=== PATIENT | female | born 1995 | race Caucasian/White ===

== ENCOUNTER → 2019-11-03 09:48 | Outpatient (BNVA) | payer BC, SELFPAY | PROVIDERS: Family Provider Family Medicine; PCP Family Medicine; Visit Provider Internal Medicine | DX: Z11.59 Encounter for screening for other viral diseases (principal) | CPT/HCPCS: 87635 ==

== ENCOUNTER → 2019-11-20 17:56 | Outpatient (BNVA) | payer BC, SELFPAY | PROVIDERS: Family Provider Family Medicine; PCP Family Medicine; Visit Provider Specialist | DX: Z20.828 Contact with and (suspected) exposure to other viral communicable diseases (principal) | CPT/HCPCS: 87635 ==

== ENCOUNTER 2019-11-22 06:12 | Outpatient (CLI) | payer BC, SELFPAY ==
--- NOTE | 2019-11-22 11:13 | PFTS_ITS ---
Date of Study:11/22/19 Date of Dictation: MECHANICS: Forced vital capacity (FVC) is normal. Forced expiratory volume in one second (FEV1) is normal. FEV1/FVC is normal. FLOW VOLUME LOOP: Normal. LUNG VOLUMES: Not measured DIFFUSING CAPACITY FOR CARBON MONOXIDE: Normal. INTERPRETATION: The spirometry is normal. The gas exchange is normal. MTDD
== END 2019-11-22 06:13 | disposition home or self-care (01) ==
LOC: RT 06:18
PROVIDERS: PCP Family Medicine; Visit Provider Specialist
DX: J30.9 Allergic rhinitis, unspecified (principal)
CPT/HCPCS: 94010; 94729

== ENCOUNTER → 2020-01-12 10:17 | Outpatient (BNVA) | payer BC, SELFPAY | PROVIDERS: PCP Family Medicine; Visit Provider Family Medicine | DX: R10.2 Pelvic and perineal pain (principal) | CPT/HCPCS: 81025 ==

== ENCOUNTER 2020-01-19 08:05 | Outpatient (CLI) | payer BC, SELFPAY ==
--- NOTE | 2020-01-19 08:45 | US_ITS ---
WS: [id number] TRANSABDOMINAL PELVIC AND TRANSVAGINAL PELVIC ULTRASOUND HISTORY: pelvic pain COMPARISON: None available. Uterus: 6.7 cm x 5.2 cm x 3.0 cm. Normal size anteverted uterus. Uterus becomes retroverted on transv aginal imaging. No fibroid or mass. Endometrium: 0.4 cm. Normal homogeneity. Right ovary: 3.2 cm x 1.9 cm x 2.9 cm. Normal size and vascularity. No mass. Left ovary: 3.0 cm x 2.7 cm x 1.9 cm. Normal size and vascularity. No mass. No free fluid. US/US pelvic with transvaginal IMPRESSION: Normal pelvic ultrasound.
== END 2020-01-19 08:06 | disposition home or self-care (01) ==
LOC: RAD 08:17
PROVIDERS: PCP Family Medicine; Visit Provider Family Medicine
DX: R10.2 Pelvic and perineal pain (principal)
CPT/HCPCS: 76830; 76856

== ENCOUNTER → 2020-10-18 11:19 | Outpatient (BNVA) | payer BC, SELFPAY | PROVIDERS: PCP Family Medicine; Visit Provider Family Medicine | DX: N92.6 Irregular menstruation, unspecified (principal) | CPT/HCPCS: 81025 ==

== ENCOUNTER 2021-03-21 10:41 | Outpatient (CLI) | payer BC, SELFPAY ==
[2021-03-21 11:52] LABS: Estmated Average Glucose 88; Hemoglobin A1C 4.7 % (4.0-6.0)
[2021-03-21 12:03] LABS: Thyroid Stimulating Hormone 1.18 uIU/mL (0.27-4.20)
[2021-03-24 15:27] LABS: Insulin ( Reference Lab Test) 5.5 uIU/mL
== END 2021-03-21 10:42 | disposition home or self-care (01) ==
PROVIDERS: PCP Family Medicine; Visit Provider Obstetrics & Gynecology
DX: N97.9 Female infertility, unspecified (principal)
CPT/HCPCS: 36415; 83036; 83525; 84443; 88175

== ENCOUNTER → 2022-11-11 10:09 | Outpatient (BNVA) | payer BC, SELFPAY | PROVIDERS: PCP Family Medicine; Referring Provider Family Medicine; Visit Provider Family Medicine | DX: Z13.1 Encounter for screening for diabetes mellitus (principal); Z13.6 Encounter for screening for cardiovascular disorders; N97.9 Female infertility, unspecified | CPT/HCPCS: 80053; 80061; 83520; 84144 ==

== ENCOUNTER 2023-04-29 18:51 | Emergency (ER) | payer BC, SELFPAY ==
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
[2023-04-29 18:58] VITALS: BP 118/79; PULSE 94; RESP 14; TEMP 36.7; O2SAT 98
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
--- NOTE | 2023-04-29 19:10 | PC.NURSE ---
Ice pack applied to hand
[2023-04-29 19:54] VITALS: PULSE 81; RESP 16; O2SAT 99
--- NOTE | 2023-04-29 20:06 | DCPLANNER ---
Message sent to Orthopedics for a follow up appointment - Patricia SCHAEFER Follow-up with orthopedist for further treatment.
== END 2023-04-29 20:00 | disposition home or self-care (01) ==
PROVIDERS: Emergency Provider Nurse Practitioner Family; PCP Family Medicine
DX: S62.326A Displaced fracture of shaft of fifth metacarpal bone, right hand, initial encounter for closed fracture (principal); W22.09XA Striking against other stationary object, initial encounter
CPT/HCPCS: 29125; 73130; 99283

== ENCOUNTER 2023-05-03 06:00 | Outpatient (CLI) | payer BC, SELFPAY | END 2023-05-03 06:01 | disposition home or self-care (01) | LOC: SPT 05-05 14:10 | PROVIDERS: Visit Provider Nurse Practitioner | DX: Z46.89 Encounter for fitting and adjustment of other specified devices (principal); S62.326D Displaced fracture of shaft of fifth metacarpal bone, right hand, subsequent encounter for fracture with routine healing; X58.XXXD Exposure to other specified factors, subsequent encounter | CPT/HCPCS: 97760; L3918 ==

== ENCOUNTER → 2023-05-03 14:30 | Outpatient (BNVA) | payer BC, SELFPAY | PROVIDERS: PCP Family Medicine; Referring Provider Nurse Practitioner Family; Visit Provider Nurse Practitioner | DX: S62.326A Displaced fracture of shaft of fifth metacarpal bone, right hand, initial encounter for closed fracture (principal); W22.8XXA Striking against or struck by other objects, initial encounter | CPT/HCPCS: 73130 ==

== ENCOUNTER 2023-05-08 11:55 | Emergency (ER) | payer BC, SELFPAY ==
[2023-05-08 12:02] VITALS: BP 133/91; PULSE 86; RESP 14; TEMP 36.9; O2SAT 100; BMI 25.2
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
[2023-05-08 12:57] VITALS: BP 104/75; PULSE 77; RESP 17; O2SAT 100
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
== END 2023-05-08 12:58 | disposition home or self-care (01) ==
PROVIDERS: Emergency Provider Family Medicine; PCP Family Medicine
DX: S62.306A Unspecified fracture of fifth metacarpal bone, right hand, initial encounter for closed fracture (principal); X58.XXXA Exposure to other specified factors, initial encounter
CPT/HCPCS: 73130; 99283

== ENCOUNTER → 2023-05-17 10:52 | Outpatient (BNVA) | payer BC, SELFPAY | PROVIDERS: PCP Family Medicine; Visit Provider Nurse Practitioner | DX: S62.326D Displaced fracture of shaft of fifth metacarpal bone, right hand, subsequent encounter for fracture with routine healing; W22.8XXD Striking against or struck by other objects, subsequent encounter | CPT/HCPCS: 73130 ==

== ENCOUNTER → 2023-06-18 09:28 | Outpatient (BNVA) | payer SELFPAY | PROVIDERS: PCP Family Medicine; Visit Provider Family Medicine | DX: S62.326D Displaced fracture of shaft of fifth metacarpal bone, right hand, subsequent encounter for fracture with routine healing (principal); W22.8XXD Striking against or struck by other objects, subsequent encounter | CPT/HCPCS: 73130 ==

== ENCOUNTER → 2023-07-12 09:12 | Outpatient (BNVA) | payer BC, SELFPAY | PROVIDERS: PCP Family Medicine; Visit Provider Specialist | DX: S62.326D Displaced fracture of shaft of fifth metacarpal bone, right hand, subsequent encounter for fracture with routine healing (principal); X58.XXXD Exposure to other specified factors, subsequent encounter | CPT/HCPCS: 73130 ==

== ENCOUNTER → 2023-10-20 08:40 | Outpatient (BNVA) | payer BC, SELFPAY | PROVIDERS: PCP Family Medicine; Visit Provider Family Medicine | DX: Z13.1 Encounter for screening for diabetes mellitus (principal); E87.6 Hypokalemia | CPT/HCPCS: 80048 ==

== ENCOUNTER 2024-08-04 13:12 | Emergency (ER) | payer BC, SELFPAY ==
[2024-08-04 13:18] VITALS: BP 120/80; PULSE 79; RESP 16; TEMP 36.7; O2SAT 100; BMI 34.2
--- NOTE | 2024-08-04 13:27 | XR_ITS ---
WS: [id number] Portable AP upright chest, 08/04/2024 Clinical Data: syncope Comparison: None. Findings: No nodules, masses or effusions are seen. The heart is normal. The pulmonary vascularity is not increased. No pneumonia or pneumothorax is seen. There are small metal artifacts on both sides of the chest. XR/XR chest 1V portable [id number] Impression: Negative chest.
--- NOTE | 2024-08-04 13:28 | ECG_ITS ---
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 Measurements Intervals [place] Rate: 73 P: 66 GA: 185 QRS: 92 QRSD: 97 T: 51 QT: 346 QTc: 383 Interpretive Statements SINUS RHYTHM WITH SINUS ARRHYTHMIA BORDERLINE RIGHT AXIS DEVIATION [QRS AXIS > 90] LOW QRS VOLTAGE IN PRECORDIAL LEADS [QRS DEFLECTION < 1.0 mV IN CHEST LEADS] No previous ECG available for comparison Electronically Signed On 08-04-2024 14:59:15 CDT by Abner Rg M.D. [email or web address]
--- NOTE | 2024-08-04 13:45 | ED_ITS ---
HPI - Chest Pain 2 General: Chief Complaint: Chest Pain Stated Complaint: dull cp/passing out Time Seen by Provider: 08/04/24 13:15 Source: patient Mode of arrival: ambulatory Limitations: no limitations History of Present Illness: Patient is a 28-year-old female who presents to the ED with intermittent dull chest pain/syncope/presyncope. She states she has been having intermittent symptoms since 2009. On Wednesday she states she had an episode where she got flushed felt short of breath and had a tight squeeze in her chest. She has had intermittent dull chest pain since this episode. She says in the past she has lost consciousness during these episodes, but she did not lose consciousness on Wednesday or anytime from Wednesday till now. She says this happens out of nowhere. She has a history of anxiety, bipolar depression, PTSD, and asthma. She feels like symptoms are unrelated to her anxiety. Questions possibly POTS? Has not noticed any direct correlation with positional changes. She has been seen by her PCP for the same thing, has never seen a bench shear operator. She denies any cardiac history, hypertension, lung disease, or seizure history. MD complaint: chest pain Onset (ago): year(s) Timing of current episode: episodic Prior episodes: Yes Onset: during rest Pain location: substernal Severity: mild Quality: tightness and dull Relieving factors: nothing Exacerbating factors: nothing Associated symptoms: Reports palpitations and syncope (Occasional syncope with chest tightness, flushing episodes); Deny abdominal pain, dyspnea, fever(s), nausea or vomiting Treatment prior to arrival: none Risk Factors: Coronary artery disease risk factors: none Thoracic aortic dissection risk factors: none Related Data Home Medications ?Medication ?Instructions ?Recorded ?Confirmed diphenhydramine HCl 50 mg capsule 50 mg PO BEDTIME PRN Sleep 05/15/19 08/04/24 (NightTime Sleep Aid (diphenhydramine)) prenat.vits,garry,[id number] 1 tab PO DAILY 05/15/19 08/04/24 cetirizine 10 mg tablet (All Day 10 mg PO DAILY PRN al lergies or 08/04/24 08/04/24 Allergy (cetirizine)) migraine escitalopram oxalate 20 mg tablet 20 mg PO DAILY 08/0408/04/24 fluticasone propionate 50 2 spray intranasal DAILY PRN 08/04/24 08/04/24 mcg/actuation nasal allergies spray,suspension Previous Rx's ?Medication ?Instructions ?Recorded [place] splint, RIGHT #1 ea 05/03/23 epinephrine 0.3 mg/0.3 mL 0.3 mg (0.3 mL) IM Q10M PRN 10/20/23 injection, auto-injector anaphylaxis #2 ea albuterol sulfate 90 mcg/actuation 2 puff inhalation Q 6H PRN 07/13/24 aerosol inhaler bronchospasm #8.5 grams amitriptyline 25 mg tablet 25 mg PO BEDTIME 90 days #9 0 tabs 07/13/24 budesonide-formoterol HFA 80 2 puff inhalation BID PRN 07/13/24 mcg-4.5 mcg/actuation aerosol Shortness Of Breath Or W heezing inhaler (Symbicort) #10.2 grams famotidine 40 mg tablet 40 mg PO BID PRN heartburn 9 0 days 07/13/24 #180 tabs montelukast 10 mg tablet 10 mg PO DAILY #90 tabs /04/18 (Singulair) sumatriptan succinate 50 mg tablet 50 mg PO Q2H PRN mi graine headache 07/13/24 (Imitrex) #9 tabs propranolol 10 mg tablet 10 mg PO BID #30 tabs trazodone 50 mg tablet 25 mg (1/2 x 50 mg) PO BEDTI ME PRN 08/04/24 insomnia #30 tabs Allergies Allergy/AdvReac Type Severity Reaction Status Date / Time No Known Allergies Allergy Verified 08/04/24 11:13 Review of Systems 2 Const: Denies: fever(s), chills or body aches Eyes: Denies: change in vision or blurry vision Card: Reports: chest pain (Dull), palpitations, lightheadedness, syncope (Occasional syncope with chest tightness, flushing episodes) and pre-syncope; Denies: irregular heart rhythm, edema, swelling of feet/ankles, dyspnea on exertion, orthopnea, leg pain with exertion or acrocyanosis Resp: Denies: dyspnea, productive cough, pain on inspiration or chest congestion GI: Denies: abdominal pain, nausea, vomiting, heartburn or diarrhea : Denies: flank pain or dysuria Musc: Denies: neck pain, back pain, extremity pain, extremity swelling or joint pain Skin/Breast: Denies: rash Neuro: Denies: headache(s), numbness in extremities, weakness in extremities, sensory changes, lack of coordination, difficulty walking, frequent falls, confusion, behavioral changes, Slurred speech present or seizure-like activity Psych: Reports: anxiety, depression, mood swings and panic attacks PFSH ED 2 PFSH: Medical History Psychiatric care Asthma Seasonal allergies Migraines Surgical History History of ear surgery Family History Mother Bleeding disorder Anemia Grandmother Cancer Maternal-Stomach Grandfather Cancer Paternal-lung Denies family history of Diabetes CAD (coronary artery disease) Clotting disorder Hyperlipidemia Chronic kidney disease (CKD) Hypertension Thyroid disease Stroke Social History Smoking and tobacco/nicotine status: never used tobacco/nicotine Alcohol intake: never Substance/Drug Use: never Female Reproductive History: Date of last menstrual period: 07/04/24 Physical Exam 2 Const: COMMON NORMALS: no acute distress, patient oriented x3, no limitations, alert and well nourished GENERAL APPEARANCE: cooperative NUTRITIONAL APPEARANCE: overweight ORIENTATION/CONSCIOUSNESS: Yes awake, Yes oriented to person, Yes oriented to place and Yes oriented to time HENMT: COMMON NORMALS: normocephalic and atraumatic HEAD & SCALP: n ormocephalic and atraumatic Neck/C-Spine: COMMON NORMALS: full ROM, no lymphadenopathy, supple and no meningeal signs Chest: COMMONS NORMALS: normal inspection of the chest and normal palpation of entire chest wall CHEST: Yes Symmetrical chest wall rise and No tenderness Breast/axilla inspection: Yes no chest deformity, asymmetry, normal contours, no nodules, masses, tenderness Resp: COMMON NORMALS: normal respiratory effort, No use of accessory muscles and clear to auscultation bilaterally EFFORT & INSPECTION: Yes able to speak in complete sentences, Yes symmetric chest movement, No tachypneic and No respiratory distress AUSCULTATION: clear to auscultation bilaterally Cardio: COMMON NORMALS: regular rate, regular rhythm, S1 normal heart sound present and S2 normal heart sound present RATE: regular rate RHYTHM: r egular rhythm HEART SOUNDS: S1 normal heart sound present and S2 normal heart sound present GI: COMMON NORMALS: Normal to inspection, nondistended, normoactive bowel sounds present, Soft to palpation, non-tender, No hepatosplenomegaly present and no masses PALPATION: Yes Soft to palpation and Yes No hepatosplenomegaly present : COMMON NORMALS: Yes no CVA tenderness BLADDER/KIDNEY EXAM: Yes no CVA tenderness Back/Pelvis: COMMON NORMALS: no CVA tenderness and thoracic and lumbar spine normal to inspection Extremity: COMMON NORMALS: normal to inspection, capillary refill normal, no clubbing, cyanosis or edema, no calf tenderness and no pedal edema GENERAL: Y es normal exam except as noted Neuro: GENEVA COMA SCALE: document GCS findings [place] coma scale eye opening: Spontaneous [place] coma scale verbal response: Orientated [place] coma scale motor response: Obey commands [place] coma scale total score: 15 COMMON NORMALS: patient oriented x3, CN's II-XII intact bilaterally, moves all extremities, no focal motor deficits, no sensory deficits noted and gait normal SENSORIUM/ORIENTATION: Yes alert, Yes oriented to person, Yes oriented to place and Yes oriented to time MENINGEAL SIGNS: Yes no meningeal signs Skin: COMMON NORMALS: no rashes or lesions noted GENERAL SKIN EXAM: no rashes or lesions noted Course 2 Vital Signs: Vital signs: Vital Signs Temperature 98.1 F 08/04/24 13:18 Pulse Rate 79 08/04/24 13:18 Respiratory Rate 16 08/04/24 13:18 Blood Pressure 120/80 08/04/24 13:18 Pulse Oximetry 100 08/04/24 13:18 Oxygen Delivery Me thod Room Air 08/04/24 13:18 MDM - Chest Pain Medical Decision Making Patient here for intermittent chest pain and syncopal/presyncopal episodes that have been intermittent over the past 15 years. Patient appears in no acute distress. Her vital signs are stable. Emergency workup today is unremarkable with no obvious etiology into her symptoms. Suspect psychogenic syncope. We did discuss however other etiologies need to effectively be ruled out usually from a neurology and cardiology standpoint. She will continue to follow-up with primary care. Case management referral for neurology placed today. Medical Records I reviewed the patient's medical records. Lab Data I reviewed the patient's lab results. 08/04/24 13:53 08/04/24 13:53 Radiology Impressions Chest X-Ray 08/04/24 13: Impression: Negative chest. Laboratory Results WBC 8.94 10^3/uL (3.29-11.43) 08/04/24 13:53 RBC 4.57 10^6/uL (3.85-5.65) 08/04/24 13:53 Hgb 13.70 g/dL (11.27-16.99) 08/04/24 13:53 Hct 40.3 % (36-47) 08/04/24 13:53 MCV 88.2 fl (85-98) 08/04/24 13:53 MCH 30.0 pg (27-33) 08/04/24 13:53 MCHC 34.0 g/dL (30-55) 08/04/24 13:53 RDW 12.4 % (12.1-15.1) 08/04/24 13:53 Plt Count 259 10^3/cmm (157-399) 08/04/24 13:53 MPV 9.8 fL (7.4-10.4) 08/04/24 13:53 Neut % (Auto) 68.8 % 08/04/24 13:53 Lymph % (Auto) 24.6 % 08/04/24 13:53 [place] % (Auto) 5.3 % 08/04/24 13:53 Eos % (Auto) 0.8 % 08/04/24 13:53 Baso % (Auto) 0.3 % 08/04/24 13:53 Neut # (Auto) 6.15 10^3/uL (1.8-7.7) 08/04/24 13:53 Lymph # (Auto) 2.2 10^3/uL (0.8-4.8) 08/04/24 13:53 [place] # (Auto) 0.5 10^3/uL (0.2-0.9) 08/04/24 13:53 Eos # (Auto) 0.1 10^3/uL (0.0-0.8) 08/04/24 13:53 Baso # (Auto) 0.0 10^3/uL (0.0-0.1) 08/04/24 13:53 Nucleated RBC % (auto) 0 % 08/04/24 13:53 Nucleated RBCs # 0.0 /100WBC 08/04/24 13:53 D-Dimer 0.35 ug/mLFEU (0-0.59) 08/04/24 13:53 Sodium 135 mmol/L (136-145) L 08/04/24 13:53 Potassium 3.7 mmol/L (3.5-5.1) 08/04/24 13:53 Chloride 100 mmol/L (98-107) 08/04/24 13:53 Carbon Dioxide 23 mmol/L (22-29) 08/04/24 13:53 Anion Gap 15.7 (5-19) 08/04/24 13:53 BUN 10 mg/dL (6-20) 08/04/24 13:53 Creatinine 0.7 mg/dL (0.5-0.9) 08/04/24 13:53 GFR Calculation 98.3 mL/min (90-130) 08/04/24 13:53 Glucose 99 mg/dL (65-115) 08/04/24 13:53 Calculated Osmolality 279 mOsm/kg (285-295) L 08/04/24 13:53 Calcium 8.9 mg/dL (8.5-10.5) 08/04/24 13:53 Total Bilirubin 0.4 mg/dL (0.15-1.2) 08/04/24 13:53 AST 24 U/L (0-32) 08/04/24 13:53 ALT 23 U/L (0-33) 08/04/24 13:53 Alkaline Phosphatase 108 U/L (35-105) H 08/04/24 13:53 Troponin T Baseline < 6 ng/L (0-10) 08/04/24 13:53 NT-Pro-B Natriuret Pep 168 pg/mL (0-125) H 08/04/24 13:53 Total Protein 7.6 g/dL (6.6-8.7) 08/04/24 13:53 Albumin 4.0 g/dL (3.5-5.2) 08/04/24 13:53 Globulin 3.6 g/dL (1.3-4.6) 08/04/24 13:53 TSH 1.30 uIU/mL (0.27-4.20) 08/04/24 13:53 HCG, Qual Negative (Negative) 08/04/24 13:53 Urine Color Yellow (Yellow) 08/04/24 14:00 Urine Appearance Clear (CLEAR) 08/04/24 14:00 Urine pH 6.0 (5-7) 08/04/24 14:00 Ur Specific Slemp 1.012 (1.005-1.030) 08/04/24 14:00 Urine Protein Negative (Negative) 08/04/24 14:00 Urine Glucose (UA) Negative (Normal) 08/04/24 14:00 Urine Ketones Negative (Negative) 08/04/24 14:00 Urine Blood Negative (Negative) 08/04/24 14:00 Urine Nitrate Negative (Negative) 08/04/24 14:00 Urine Bilirubin Negative (Negative) 08/04/24 14:00 Urine Urobilinogen 0.2 mg/dL (Negative) 08/04/24 14:00 Ur Leukocyte Esterase 2+ (Negative) A 08/04/24 14:00 Urine RBC 0-2 /hpf (0-2) 08/04/24 14:00 Urine WBC 21-50 /hpf (0-5) H 08/04/24 14:00 Ur Squamous Epith Cells 11-20 /hpf (0-5) H 08/04/24 14:00 Amorphous Sediment Not Reportable 08/04/24 14:00 Urine Bacteria Trace /hpf (NONE) 08/04/24 14:00 Hyaline Casts 0-4 /lpf H 08/04/24 14:00 Urine Opiates Screen Negative ng/mL (Negative) 08/04/24 14:00 Ur Barbiturates Screen Negative ng/mL (Negative) 08/04/24 14:00 Ur Phencyclidine Scrn Negative ng/mL (Negative) 08/04/24 14:00 Ur Amphetamines Screen Negative ng/mL (Negative) 08/04/24 14:00 U Benzodiazepines Scrn Negative ng/mL (Negative) 08/04/24 14:00 Urine Cocaine Screen Negative ng/mL (Negative) 08/04/24 14:00 U Marijuana (THC) Screen Negative ng/mL (Negative) 08/04/24 14:00 All radiology interpretation(s) finalized by discharge Discharge Plan Discharge Patient Disposition: Home Clinical Impression: Syncopal episodes Qualifiers: Syncope type: unspecified Qualified Code(s): R55 - Syncope and collapse Condition: Stable Prescriptions: No Action prenat.vits,garry,[id number] Tablet 1 tab PO DAILY diphenhydramine HCl [NightTime Sleep Aid (diphen)] 50 mg capsule 50 mg PO BEDTIME PRN (Reason: Sleep) epinephrine 0.3 mg/0.3 mL auto-injector 0.3 mg IM Q10M PRN (Reason: anaphylaxis) Qty: 2 0RF Rx Instructions: for 2 doses (DME) [place] splint, RIGHT See Rx Instructions .Route .MEDSUPPLY Qty: 1 0RF Rx Instructions: As directed amitriptyline 25 mg tablet 25 mg PO BEDTIME 90 Days Qty: 90 3RF albuterol sulfate 90 mcg/actuation HFA aerosol inhaler 2 puff inhalation Q6H PRN (Reason: bronchospasm) Qty: 8.5 12RF Symbicort 80-4.5 mcg/actuation HFA aerosol inhaler 2 puff inhalation BID PRN (Reason: Shortness Of Breath Or Wheezing) Qty: 10.2 12RF famotidine 40 mg tablet 40 mg PO BID PRN (Reason: heartburn) 90 Days Qty: 180 3RF montelukast [Singulair] 10 mg tablet 10 mg PO DAILY Qty: 90 3RF sumatriptan succinate [Imitrex] 50 mg tablet 50 mg PO Q2H PRN (Reason: migraine headache) Qty: 9 5RF trazodone 50 mg tablet 25 mg PO BEDTIME PRN (Reason: insomnia) Qty: 30 3RF propranolol 10 mg tablet 10 mg PO BID Qty: 30 3RF cetirizine [All Day Allergy (cetirizine)] 10 mg tablet 10 mg PO DAILY PRN (Reason: allergies or migraine) fluticasone propionate 50 mcg/actuation spray,suspension 2 spray INTRANASAL DAILY PRN (Reason: allergies) escitalopram oxalate 20 mg tablet 20 mg PO DAILY Discharge Orders: Discharge ED (Routine); Ordered 08/04/24 Ordered By: Doris Null Referrals: Winifred Smallwood MD [Primary Care Provider, Family Practice] Patient Instructions: Syncope (DC) Activity Restrictions/Additional Instructions: As we discussed, your emergency workup today was fairly unremarkable. Please continue to follow-up with primary care. Will also place referral for case management follow-up to get you set up with neurology. You may also require cardiology follow-up as well. Print Language: Latvian Coding Level of Care Code ED Bus And Trolley Dispatcher for Candice Christine
[2024-08-04 13:59] LABS: Basophils % 0.3 %; Eosinophils # 0.1 10^3/uL (0.0-0.8); Eosinophils % 0.8 %; Hematocrit 40.3 % (36-47); Lymphocytes # 2.2 10^3/uL (0.8-4.8); Lymphocytes % 24.6 %; Mean Corpuscular Volume 88.2 fl (85-98); Mean Platelet Volume 9.8 fL (7.4-10.4); Monocytes # 0.5 10^3/uL (0.2-0.9); Monocytes % 5.3 %; Neutrophils # 6.15 10^3/uL (1.8-7.7); Neutrophils % 68.8 %; Nucleated Red Blood Cells % 0 %; Platelet Count 259 10^3/cmm (157-399); Red Blood Count 4.57 10^6/uL (3.85-5.65); Red Cell Distribution Width 12.4 % (12.1-15.1); White Blood Count 8.94 10^3/uL (3.29-11.43)
--- NOTE | 2024-08-04 14:05 | PC.PHAR ---
Pt has several prescriptions for 90 day supply last filled 10/20/23 but states she still takes them all. Pt has 2 new rx's from today that are not picked up yet. Propranolol 10mg bid and Trazodone 50mg 25mg hs.
[2024-08-04 14:17] LABS: HCG, Serum Qual Negative (Negative)
[2024-08-04 14:19] LABS: D Dimer 0.35 ug/mLFEU (0-0.59)
[2024-08-04 14:22] LABS: Troponin(5th) Baseline < 6 ng/L (0-10)
[2024-08-04 14:25] LABS: Bilirubin Urine Negative (Negative); Blood Urine Negative (Negative); Glucose Urine UA Negative (Normal); Ketones Urine Negative (Negative); Leukocyte Esterase Urine 2+ (Negative); Nitrate Urine Negative (Negative); Protein Urine Negative (Negative); Specific Gravity, Urine 1.012 (1.005-1.030); Urine Appearance Clear (CLEAR); Urine Color Yellow (Yellow); Urobilinogen Urine 0.2 mg/dL (Negative)
[2024-08-04 14:30] LABS: Add Urine Microscopic? YES; Bacteria Urine Trace /hpf; Hyaline Casts Urine 0-4 /lpf; RBC Urine 0-2 /hpf (0-2); WBC Urine 21-50 /hpf (0-5)
[2024-08-04 14:31] LABS: Amphetamines Screen Urine Negative (Negative); Barbiturates Screen Urine Negative (Negative); Benzodiazepines Screen Urine Negative (Negative); Cocaine Screen Urine Negative (Negative); Opiate Screen Urine Negative (Negative); PCP Screen Urine Negative (Negative); THC Screen Urine Negative (Negative)
[2024-08-04 14:32] LABS: Alanine Aminotransferase 23 U/L (0-33); Alkaline Phosphatase 108 U/L (35-105); Aspartate Amino Transferase 24 U/L (0-32); Blood Urea Nitrogen 10 mg/dL (6-20); Calcium 8.9 mg/dL (8.5-10.5); Carbon Dioxide 23 mmol/L (22-29); Chloride 100 mmol/L (98-107); Creatinine Clr Calc Pharmacy 132.7848; Globulin 3.6 g/dL (1.3-4.6); Glomerular Filtration Rate 98.3 mL/min (90-130); Glucose 99 mg/dL (65-115); NT Pro B Type Natriuretic Pept 168 pg/mL (0-125); Osmolality Calculated 279 mOsm/kg (285-295); Sodium 135 mmol/L (136-145); Total Bilirubin 0.4 mg/dL (0.15-1.2); Total Protein 7.6 g/dL (6.6-8.7)
[2024-08-04 14:33] LABS: Anion Gap 15.7 (5-19); Potassium 3.7 mmol/L (3.5-5.1)
--- NOTE | 2024-08-07 07:36 | DCPLANNER ---
messaged neuro for er f/u
== END 2024-08-04 14:52 | disposition home or self-care (01) ==
PROVIDERS: Emergency Provider Physician Assistant; PCP Family Medicine
DX: R55 Syncope and collapse (principal); R07.9 Chest pain, unspecified; F41.9 Anxiety disorder, unspecified; F31.9 Bipolar disorder, unspecified; F43.10 Post-traumatic stress disorder, unspecified; J45.909 Unspecified asthma, uncomplicated; Z79.899 Other long term (current) drug therapy
CPT/HCPCS: 36415; 71045; 80053; 80306; 81001; 83880; 84443; 84484; 84703; 85025; 85378; 93005; 99285

== ENCOUNTER 2024-08-21 12:37 | Emergency (ER) | payer BC, SELFPAY ==
[2024-08-21 12:40] VITALS: BP 114/73; PULSE 65; TEMP 36.5; O2SAT 98; BMI 34.2
--- OUTSIDE RECORDS SUMMARY | 2024-08-21 12:42 | XMS_ITS | Clinical Summary ---
Author Organization [facility] Address [address] [place] [address] Care Team Providers Care Saw Operator Name Role Phone Unavailable Primary Care Provider Unavailabl e Social History Tobacco Use Types Packs/Day Years Used Date Smoking Tobacco: Never Assessed Comments Unknown Sex and Gender Information Value Date Recorded Sex Assigned at Not on file Legal Sex Female 10:38 AM CDT Gender Identity Not on file Sexual Orientation Not on file Plan of Treatment Health Maintenance Due Date Last Done Comments DTAP/TDAP/TD VACCINES (1 - Tdap) 2012 HEPATITIS B VACCINES (1 of 3 - 19+ 3-dose series) 2012 HPV/Cotest (21-29) 2014 INFLUENZA VACCINE (#1) 2023 CERVICAL CANCER SCREENING 12/02/2023 HPV/Cotest (30-65) 12/02/2023 PAP SMEAR 12/02/2023 HPV VACCINES Aged Out No longer eligi ble based on patient's age to complete this topic
--- NOTE | 2024-08-21 13:10 | ED_ITS ---
HPI - General Adult General: Chief complaint: Airway/Esophagus Foreign Body Stated complaint: pain in neck Time Seen by Provider: 08/21/24 13:06 Source: patient Mode of arrival: ambulatory Limitations: no limitations History of Present Illness: 28-year-old female states that she had t aken some of her pills last week felt like that gotten stuck in her throat and said that since then she has been had burning sensation especially when she swallows was had pain with swallowing she been able to tolerate liquids and solids she denies any difficulty talking or handling her secretions denies any fevers Associated symptoms: Deny chest pain, dyspnea, headache(s), nausea, rash or vomiting Related Data Home Medications ?Medication ?Instructions ?Recorded ?Confirmed diphenhydramine HCl 50 mg capsule 50 mg PO BEDTIME PRN Sleep 05/15/19 08/21/24 (NightTime Sleep Aid (diphenhydramine)) cetirizine 10 mg tablet (All Day 10 mg PO DAILY PRN al iain or 08/04/24 08/21/24 Allergy (cetirizine)) migraine escitalopram oxalate 20 mg tablet 20 mg PO DAILY 08/0408/21/24 fluticasone propionate 50 2 spray intranasal DAILY PRN 08/04/24 08/21/24 mcg/actuation nasal allergies spray,suspension vitamins no.148-iron 27 1 cap PO DAILY 08/21/24 mg-folate 1 mg-dha 205 mg capsule Previous Rx's ?Medication ?Instructions ?Recorded [place] splint, RIGHT #1 ea 05/03/23 epinephrine 0.3 mg/0.3 mL 0.3 mg (0.3 mL) IM Q10M PRN 10/20/23 injection, auto-injector anaphylaxis #2 ea albuterol sulfate 90 mcg/actuation 2 puff inhalation Q 6H PRN 07/13/24 aerosol inhaler bronchospasm #8.5 grams amitriptyline 25 mg tablet 25 mg PO BEDTIME 90 days #9 0 tabs 07/13/24 budesonide-formoterol HFA 80 2 puff inhalation BID PRN 07/13/24 mcg-4.5 mcg/actuation aerosol Shortness Of Breath Or W heezing inhaler (Symbicort) #10.2 grams famotidine 40 mg tablet 40 mg PO BID PRN heartburn 9 0 days 05/22/25 #180 tabs montelukast 10 mg tablet 10 mg PO DAILY #90 tabs 06/23 04/18 (Singulair) sumatriptan succinate 50 mg tablet 50 mg PO Q2H PRN mi graine headache 07/13/24 (Imitrex) #9 tabs propranolol 10 mg tablet 10 mg PO BID #30 tabs trazodone 50 mg tablet 25 mg (1/2 x 50 mg) PO BEDTI ME PRN 08/04/24 insomnia #30 tabs pantoprazole 40 mg tablet,delayed 40 mg PO DAILY #60 t abs 08/21/24 release (Protonix) Allergies Allergy/AdvReac Type Severity Reaction Status Date / Time No Known Allergies Allergy Verified 08/21/24 12:45 Review of Systems Const: Denies: fever(s), chills, body aches or change in appetite Eyes: Denies: blurry vision or eye discomfort ENMT: Reports: throat pain; Denies: dental pain Card: Denies: chest pain Resp: Denies: dyspnea GI: Denies: abdominal pain, nausea, vomiting or diarrhea Musc: Denies: neck pain or back pain Skin/Breast: Denies: rash Neuro: Denies: headache(s) PFSH ED PFSH: Medical History Psychiatric care Asthma Seasonal allergies Migraines Surgical History History of ear surgery Family History Mother Bleeding disorder Anemia Grandmother Cancer Maternal-Stomach Grandfather Cancer Paternal-lung Denies family history of Diabetes CAD (coronary artery disease) Clotting disorder Hyperlipidemia Chronic kidney disease (CKD) Hypertension Thyroid disease Stroke Social History Smoking and tobacco/nicotine status: never used tobacco/nicotine Alcohol intake: never Substance/Drug Use: never Physical Exam Const: COMMON NORMALS: no acute distress, patient oriented x3 and healthy appearing HENMT: COMMON NORMALS: normocephalic and atraumatic HEAD & SCALP: normocephalic and atraumatic MOUTH: Normal oral and palatal mucosa present THROAT: posterior oropharynx normal Eye: COMMON NORMALS: conjunctivae normal CONJUNCTIVA: Yes conjunctivae normal Neck/C-Spine: COMMON NORMALS: full ROM, supple and Thyroid normal GENERAL: Yes normal visual inspection, Yes trachea midline and No anterior neck swelling THYROID: Thyroid normal Chest: COMMONS NORMALS: normal inspection of the chest Resp: COMMON NORMALS: normal respiratory effort Cardio: COMMON NORMALS: regular rate, regular rhythm and No murmurs present (Cardio) RATE: regular rate RHYTHM: regular rhythm Extremity: COMMON NORMALS: normal to inspection and full ROM Neuro: COMMON NORMALS: patient oriented x3, moves all extremities and no focal motor deficits Psych: COMMON NORMALS: mental status grossly normal, Normal thought process present and cooperative THOUGHT PROCESS: Normal thought process present Skin: COMMON NORMALS: no rashes or lesions noted and no wounds GENERAL SKIN EXAM: no rashes or lesions noted Course Vital Signs: Vital signs: Vital Signs Temperature 97.7 F 08/21/24 12:40 Pulse Rate 65 08/21/24 12:40 Blood Pressure 114/73 08/21/24 12:40 Pulse Oximetry 98 08/21/24 12:40 Oxygen Delivery Me thod Room Air 08/21/24 12:40 [facility] - General Adult Medical Decision Making Patient presents for pain and swelling could be esophagitis she is well- appearing here CT scan showed no acute findings she is stable for discharge follow-up PCP return if worsening she understands agrees to plan. Medical Records I reviewed the patient's medical records. Lab Data Radiology Impressions Soft Tissue Neck X-Ray 08/21/24 13:18 IMPRESSION: Unremarkable radiographic appearance of the neck soft tissues. Neck CT 08/21/24 13:58 IMPRESSION: Mildly enlarged palatine tonsils without convincing CT evidence of acute tonsillitis or drainable fluid collection. All radiology interpretation(s) finalized by discharge Discharge Plan Discharge Patient Disposition: Home Clinical Impression: Pain with swallowing Condition: Stable Prescriptions: New pantoprazole [Protonix] 40 mg tablet,delayed release (DR/EC) 40 mg PO DAILY Qty: 60 0RF No Action diphenhydramine HCl [NightTime Sleep Aid (diphen)] 50 mg capsule 50 mg PO BEDTIME PRN (Reason: Sleep) epinephrine 0.3 mg/0.3 mL auto-injector 0.3 mg IM Q10M PRN (Reason: anaphylaxis) Qty: 2 0RF Rx Instructions: for 2 doses (DME) [place] splint, RIGHT See Rx Instructions .Route .MEDSUPPLY Qty: 1 0RF Rx Instructions: As directed amitriptyline 25 mg tablet 25 mg PO BEDTIME 90 Days Qty: 90 3RF albuterol sulfate 90 mcg/actuation HFA aerosol inhaler 2 puff inhalation Q6H PRN (Reason: bronchospasm) Qty: 8.5 12RF Symbicort 80-4.5 mcg/actuation HFA aerosol inhaler 2 puff inhalation BID PRN (Reason: Shortness Of Breath Or Wheezing) Qty: 10.2 12RF famotidine 40 mg tablet 40 mg PO BID PRN (Reason: heartburn) 90 Days Qty: 180 3RF montelukast [Singulair] 10 mg tablet 10 mg PO DAILY Qty: 90 3RF sumatriptan succinate [Imitrex] 50 mg tablet 50 mg PO Q2H PRN (Reason: migraine headache) Qty: 9 5RF trazodone 50 mg tablet 25 mg PO BEDTIME PRN (Reason: insomnia) Qty: 30 3RF propranolol 10 mg tablet 10 mg PO BID Qty: 30 3RF [id number] 6-dha 27 mg iron-1 mg -205 mg Capsule 1 cap PO DAILY cetirizine [All Day Allergy (cetirizine)] 10 mg tablet 10 mg PO DAILY PRN (Reason: allergies or migraine) fluticasone propionate 50 mcg/actuation spray,suspension 2 spray INTRANASAL DAILY PRN (Reason: allergies) escitalopram oxalate 20 mg tablet 20 mg PO DAILY Discharge Orders: Discharge ED (Routine); Ordered 08/21/24 Ordered By: Antonio Hoang Referrals: Winifred Smallwood MD [Primary Care Provider, Family Practice] - 4-7 days Discharge Diet: Advance as tolerated Discharge Activity: Resume usual activity Patient Instructions: Esophagitis (ED) Print Language: Montenegrin Coding Level of Care Code ED Fabricator Special Items for Candice Christine
--- NOTE | 2024-08-21 13:18 | XRR_ITS ---
PROCEDURE INFORMATION: Exam: XR Soft Tissue Neck Exam date and time: 08/21/2024 1:22 PM Age: 28 years old Clinical indication: Dysphagia / difficulty swallowing; Additional info: Painful swalowing TECHNIQUE: Imaging protocol: Radiologic exam of the soft tissues of the neck. COMPARISON: CR XR chest 1V portable [id number] 08/04/2024 1:42 PM FINDINGS: Airway: No abnormal narrowing. No foreign body. Soft tissues: Unremarkable epiglottis. Prevertebral soft tissues measure within normal limits. Bones/joints: Unremarkable. XR/XR soft tissue neck [id number] IMPRESSION: Unremarkable radiographic appearance of the neck soft tissues.
[2024-08-21] MEDS: lidocaine 2% viscous 15 ML, aluminum-mag hydrox-simethicon 30 ML, sucralfate oral liq 1 GM PO (13:24)
--- NOTE | 2024-08-21 13:58 | CTR_ITS ---
PROCEDURE INFORMATION: Exam: CT Neck With Contrast Exam date and time: 08/21/2024 2:13 PM Age: 28 years old Clinical indication: Painful swallowing TECHNIQUE: Imaging protocol: Computed tomography of the neck with contrast. Radiation optimization: All CT scans at this facility use at least one of these dose optimization techniques: automated exposure control; mA and/or kV adjustment per patient size (includes targeted exams where dose is matched to clinical indication); or iterative reconstruction. Contrast material: OMNI 350; Contrast volume: 100 ml; Contrast route: INTRAVENOUS (IV); COMPARISON: CR XR soft tissue neck [id number] 08/21/2024 1:22 PM RADIATION DOSE METRICS: Total DLP (mGy-cm): 196.16 FINDINGS: Salivary glands: Normal. Glands are normal in size. Pharynx: Mildly enlarged palatine tonsils without striated enhancement. No drainable fluid collection. Larynx: Unremarkable. Epiglottis is normal. Thyroid: Unremarkable. Trachea: Visualized trachea is unremarkable. Lungs: Unremarkable as visualized. Lymph nodes: No pathologically enlarged cervical lymph nodes. Nonspecific subcentimeter lymph nodes, likely physiologic or reactive. Bones/joints: No acute fracture. Soft tissues: No mass or fluid collection. CT/CT neck w con* [id number] IMPRESSION: Mildly enlarged palatine tonsils without convincing CT evidence of acute tonsillitis or drainable fluid collection.
[2024-08-21] MEDS: iohexol 350 mg/mL 500 mL Btl (per mL) IV (14:16)
[2024-08-21] MEDS: pantoprazole 40 mg SDV 80 MG IVP (14:37)
[2024-08-21] MEDS: dexamethasone 10 mg/mL INJ IVP (15:30)
[2024-08-21 15:47] VITALS: BP 117/82; PULSE 59; RESP 16; O2SAT 97
== END 2024-08-21 15:46 | disposition home or self-care (01) ==
PROVIDERS: Emergency Provider Emergency Medicine; PCP Family Medicine
DX: R13.10 Dysphagia, unspecified (principal)
CPT/HCPCS: 70360; 70491; 96374; 96375; 99285; J1100; J2470; J9999

== ENCOUNTER → 2024-08-24 10:33 | Outpatient (BNVA) | payer BC, SELFPAY | PROVIDERS: PCP Family Medicine; Visit Provider Family Medicine | DX: J02.9 Acute pharyngitis, unspecified (principal) | CPT/HCPCS: 87071; 87880 ==

== ENCOUNTER → 2024-09-05 11:39 | Outpatient (BNVA) | payer BC, SELFPAY | PROVIDERS: PCP Family Medicine; Referring Provider Family Medicine; Visit Provider Psychiatry & Neurology Neurology | DX: R55 Syncope and collapse (principal); N92.6 Irregular menstruation, unspecified | CPT/HCPCS: 36415; 82306; 82607; 83735; 83921; 84703 ==

== ENCOUNTER 2024-09-26 12:36 | Outpatient (CLI) | payer BC, SELFPAY ==
--- NOTE | 2024-09-26 13:00 | MR_ITS ---
WS: [id number] MRA HEAD TECHNIQUE: Axial 3-D TOF images obtained with axial images and axial, sagittal, and coronal 2-D reformatted images. CLINICAL INFORMATION: R55 - Syncope and collapse COMPARISON: None. FINDINGS: Distal vertebral arteries are patent. Basilar artery is patent. Normal vascularity to the [employer] territory bilaterally. Both ICAs are patent at the skull base. Normal vascularity to the JOSE L and MCA territories bilaterally. No evidence of proximal flow-limiting stenosis. MR/MR angio head wo con [id number] IMPRESSION: Normal intracranial MRA.
--- NOTE | 2024-09-26 13:15 | MR_ITS ---
WS: [id number] MRA CAROTID WITHOUT AND WITH GADOLINIUM ENHANCEMENT TECHNIQUE: Axial 2-D TOF and gadolinium bolus images obtained with axial images and axial, sagittal, and coronal 2-D reformatted images. CLINICAL INFORMATION: R55 - Syncope and collapse COMPARISON: None. FINDINGS: RIGHT: RIGHT common carotid artery is patent. No significant RIGHT ICA stenosis. RIGHT ICA is patent to the skull base. LEFT: LEFT common carotid artery is patent. No significant LEFT ICA stenosis. LEFT ICA is patent to the skull base. Codominant and patent vertebral arteries bilaterally. Proximal subclavian arteries are patent. MR/MR angio neck w con* [id number] IMPRESSION: Normal neck MRA
--- NOTE | 2024-09-26 14:00 | MR_ITS ---
WS: [id number] MRI HEAD WITH CONTRAST TECHNIQUE: Sagittal T1, T2 axial, T2 axial FLAIR, axial susceptibility weighted imaging, axial diffusion weighted images, and coronal T2 images were obtained. Pre and post-T1 axial and post T1 coronal images. ADC and FSPGR images. CLINICAL INFORMATION: R55 - Syncope and collapse COMPARISON: None. FINDINGS: Some images degraded by motion. No evidence of restricted diffusion to suggest acute ischemia. Ventricular system and basal cisterns are patent. No suspicious intracranial signal abnormalities. Normal hollis-white differentiation. Normal posterior fossa. Normal vascular flow voids at the skull base. No extra-axial fluid collections. Pa ranasal sinuses are well aerated. Normal posterior nasopharynx. Mild mucosal thickening in the mastoid air cells. No hemosiderin on the susceptibly weighted images. Normal optic chiasm and pituitary infundibulum. Temporal lobes and hippocampal formations are normal in appearance. No abnormal gadolinium enhancement. MR/MR head wo/w con [id number] IMPRESSION: 1. No evidence of restricted diffusion to suggest acute ischemia. 2. No suspicious intracranial signal abnormalities. 3. No abnormal gadolinium enhancement. 4. No hemosiderin on the susceptibly weighted images. 5. No other acute findings.
[2024-09-26] MEDS: gadobenate dimeglumine 20 mL vial IV (15:02)
== END 2024-09-26 12:37 | disposition home or self-care (01) ==
LOC: RAD 12:37
PROVIDERS: PCP Family Medicine; Visit Provider Psychiatry & Neurology Neurology
DX: R55 Syncope and collapse (principal)
CPT/HCPCS: 70544; 70548; 70553